=== PATIENT | female | born 1980 | race African-American/Black ===

== ENCOUNTER 2024-10-30 11:51 | Emergency (ER) | payer OTHER, SELFPAY ==
[2024-10-30 11:55] VITALS: BP 190/110
--- NOTE | 2024-10-30 13:11 | ED.GENMED ---
History of Present Illness
General
Chief Complaint: Head Injury
Source: patient
Time Seen by Provider: 10/30/24 12:19
History of Present Illness
History of Present Illness:
44-year-old female with past medical history of asthma and hypertension presenting to the ER for evaluation after she was at work and while taking a lunch tray from the bottom a tray from the top excellently fell and struck her on the left occipital
parietal region, has a headache and small contusion to and felt a little bit nauseous reports no vomiting, LOC or any other concerns. Denies any previous history of head injury. No use of anticoagulants.
Past History
Past History
ED Past Medical History: Asthma and HTN
ED Past Surgical History: Cholecystectomy
Social History
Tobacco: Non-smoker
Alcohol: None
Drug: None
Personal:
Living: with family
Employment: Employed
Review of Systems
Review of Systems
All Other Systems: ROS reviewed and negative except as documented in HPI and ROS
Phy Exam
Physical Exam
Physical Exam:
GENERAL: Alert , in no apparent distress
EYE: conjunctiva clear
Head: small contusion noted to the left occipital parietal region but no breaks in the skin or active bleeding
NECK: Supple,
ENT: mmm.
LUNGS: no acute respiratory distress
NEUROLOGICAL: Alert and oriented
SKIN: Warm and dry, skin intact.
MUSCULOSKELETAL: well perfused.
PSYCH: Normal and appropriate interaction.
Scores
Heart Failure Risk
Heart Failure Risk Score: Not Applicable
Heart Score for Chest Pain Patients
STEMI patient?: Not applicable
Withdrawal Assessment of Alcohol
Withdrawal Assessment Completed?: Not applicable
Course
Orders/Labs/Results
Orders:
Orders
10/30/24 13:19
Acetaminophen [Tylenol] 1,000 mg PO NOW STA
Vital Signs
Initial and Last Documented VS:
Initial Vital Signs
Temp Pulse Resp BP Pulse Ox
98.3 F 69 16 190/110 100
10/30/24 11:55 10/30/24 11:55 10/30/24 11:55 10/30/24 11:55 10/30/24 11:55
Last Documented Vital Signs
Temp Pulse Resp BP Pulse Ox
98.3 F 69 16 190/110 100
10/30/24 11:55 10/30/24 11:55 10/30/24 11:55 10/30/24 11:55 10/30/24 11:55
MDM/Problems Addressed
Differential Diagnosis Includes:
Contusion, concussion, intracranial bleeding
MDM/Problems Addressed:
44-year-old female presenting to the ER for evaluation after she was excellently struck in the head by a falling lunch tray. Sent to the ER from urgent care who felt patient might need further testing and what could be provided there. I discussed
risk versus benefit of CT imaging with the patient and at this time she does feel comfortable foregoing and I do agree that the risk of radiation exposure outweighs the benefit as I do not have concern for intracranial pathology. We did discuss
concussive symptoms as well as management. Motrin/Tylenol as needed for symptoms. Patient is otherwise stable for discharge
*Pulse Oximetry
Patient hypoxic: no
*Critical Care Note
Total Time (30-74mins, 75-104mins- exclusive of procedures): Not Applicable
ED Attending Note
-
Portions of this chart may have been created with voice recognition software.� Occasional wrong word or��sound alike� substitutions may have occurred due to the inherent limitations of voice recognition software.
Discharge Plan
Departure
Patient Disposition: Home (Routine Discharge)
Date of Disposition: 10/30/24
Time of Disposition: 13:11
Patient with high blood pressure during this ER visit?: Yes
Discharge Problem:
Head injury
Instructions: Concussion, Adult (DC)
Referrals:
NONE,* [Family Provider] -
Stand Alone Forms: Return to Work
Interventions
Interventions:
*Risk Screen - Suicide Last Done: 10/30/24 11:55
*General Assessment Last Done: 10/30/24 11:55
*Neglect/Abuse Screening Last Done: 10/30/24 11:55
*ED COVID-19 Vaccine History Last Done: 10/30/24 11:55
*Nursing Disposition Last Done: 10/30/24 13:25
ED- Neurological Assessment Last Done: 10/30/24 12:10
Discharge Date and Time
Print Language: TURKMEN
[2024-10-30] MEDS: TYLENOL 1000 MG PO (13:22)
== END 2024-10-30 13:58 | disposition home or self-care (01) ==
LOC: EMR 11:51
PROVIDERS: EMERGENCY PHYSICIAN Emergency Medicine
DX: S09.90XA Unspecified injury of head, initial encounter (principal); W20.8XXA Other cause of strike by thrown, projected or falling object, initial encounter; I10 Essential (primary) hypertension; J45.909 Unspecified asthma, uncomplicated; Z90.49 Acquired absence of other specified parts of digestive tract
CPT/HCPCS: 99282

== ENCOUNTER 2024-11-02 15:55 | Emergency (ER) | payer OTHER, SELFPAY ==
[2024-11-02 15:59] VITALS: BP 180/100
--- NOTE | 2024-11-02 17:58 | ED.GENMED ---
History of Present Illness
General
Chief Complaint: Head Injury
Source: patient
Exam Limitations: none
Time Seen by Provider: 11/02/24 16:36
Nursing documentation reviewed up to this point in time: agreed with
History of Present Illness
History of Present Illness:
Patient states she was hit on top of her head by a tray on Saturday. No LOC. SHe was seen in ED after incident. Neuro exam WNL, CT not indicated. She states she felt ok until yesterday when her headaches started to worsen. Brought self to ED for
eval.
Past History
Past History
ED Past Medical History: Asthma and HTN
ED Past Surgical History: Cholecystectomy
Social History
Tobacco: Non-smoker
Alcohol: None
Drug: None
Personal:
Living: with family
Employment: Employed
Review of Systems
Review of Systems
Allergies reviewed?: Yes
All Other Systems: ROS reviewed and negative except as documented in HPI and ROS
Constitutional: Reports no symptoms
EENT: Reports no symptoms
Respiratory: Reports no symptoms
Cardiac: Reports no symptoms
ABD/GI: Reports no symptoms
: Reports no symptoms
Musculoskeletal: Reports no symptoms
Skin: Reports no symptoms
Neurological: Reports headache
Psychiatric: Reports no symptoms
Phy Exam
General Physical Exam
General Presentation: well appearing and no apparent distress
General age: appears stated age
General Skin: warm and dry
General Habitus: normal
General Mental: alert
ENT Exam
ENT Exam: EOMI, TM's normal, neck supple and normocephalic
Eye Exam
Eye Exam: PERRL, EOMI, conjunctiva normal and globe normal
Neurological Exam
Neurological Exam: alert, oriented x3, CN II-XII intact, no motor deficits, no sensory deficits, speech normal and normal gait
[place] Coma Scale
Eye Opening: Spontaneous
Verbal Response: Oriented
Motor Response: Obeys Commands
GCS Total Score: 15
Musculoskeletal Exam
Musculoskeletal Exam: full ROM and neuro vasc intact
Skin Exam
Skin Exam: normal color, warm/dry and no rash
Psychiatric Exam
Psychiatric Exam: normal mood/affect
Course
Orders/Labs/Results
Orders:
Orders
11/02/24 16:01
CT Head W/o Iv Contrast Urgent
Comment:
Reason For Exam: try hit head on and feels worse today
Vital Signs
Initial and Last Documented VS:
Initial Vital Signs
Temp Pulse Resp BP Pulse Ox
98.0 F 83 16 180/100 98
11/02/24 15:59 11/02/24 15:59 11/02/24 15:59 11/02/24 15:59 11/02/24 15:59
Last Documented Vital Signs
Temp Pulse Resp BP Pulse Ox
98.0 F 83 16 180/100 98
11/02/24 15:59 11/02/24 15:59 11/02/24 15:59 11/02/24 15:59 11/02/24 15:59
*Radiology
Radiology exam reviewed: radiology read reviewed
*Pulse Oximetry
Patient hypoxic: no
*Critical Care Note
Total Time (30-74mins, 75-104mins- exclusive of procedures): Not Applicable
ED Attending Note
-
Portions of this chart may have been created with voice recognition software.� Occasional wrong word or��sound alike� substitutions may have occurred due to the inherent limitations of voice recognition software.
Discharge Plan
Departure
Patient Disposition: Home (Routine Discharge)
Date of Disposition: 11/02/24
Time of Disposition: 17:56
Patient with high blood pressure during this ER visit?: No
Condition: Good
Covid-19: Not Applicable
Discharge Problem:
Head injury
Instructions: Concussion, Adult (DC), Contusion (DC)
Prescriptions:
New
ibuprofen 800 mg tablet
800 mg PO TID PRN (Reason: Pain) Qty: 20 0RF
Stand Alone Forms: Return to Work
Activity Restrictions/Additional Instructions:
Follow up with you workman's comp provider in the AM
Interventions
Interventions:
*Risk Screen - Suicide Last Done: 11/02/24 15:59
*General Assessment Last Done: 11/02/24 16:14
*Neglect/Abuse Screening Last Done: 11/02/24 15:59
*ED COVID-19 Vaccine History Last Done: 11/02/24 16:14
*Nursing Disposition Last Done: 11/02/24 18:19
ED- Neurological Assessment Last Done: 11/02/24 16:14
ED-Skin Assessment Last Done: 11/02/24 16:14
Discharge Date and Time
Discharge Date/Time: 11/02/24 18:25
Print Language: ARMENIAN
== END 2024-11-02 18:25 | disposition home or self-care (01) ==
LOC: EMR 15:55
PROVIDERS: EMERGENCY PHYSICIAN Emergency Medicine
DX: S09.90XA Unspecified injury of head, initial encounter (principal); W22.8XXA Striking against or struck by other objects, initial encounter; I10 Essential (primary) hypertension
CPT/HCPCS: 99284; 70450